=== PATIENT | male | born 1985 | race Caucasian/White ===

== ENCOUNTER 2016-08-02 09:27 | Outpatient (CLI) | payer OTHER ==
[2016-08-02] MEDS ORDERED: NACL ONE (09:59)
--- NOTE | 2016-08-02 11:56 | Cat Scan Report ---
CT CHEST WITH AND WITHOUT CONTRAST INDICATION: History of positive PPD. Abnormal chest x-ray. Cough, chest pain. COMPARISON: None similar at this institution. FINDINGS: Chest CT performed before and after IV contrast. Associate Application Developer view suggests suboptimal inspiration with exaggerated cardiomediastinal silhouette/possible cardiomegaly. Right hemidiaphragm slightly elevated. No effusions. Unremarkable great vessels. No size significant adenopathy. Patent central airway. Minimal residual thymus anteriorly with preserved mediastinal contours. Unremarkable thyroid. Clear, well-expanded lungs. Nonspecific distal esophageal wall thickening, not excluded for gastroesophageal reflux and/or hiatal hernia, amongst others. Moderate colonic stool/possible constipation. Normal appendix. Redundant ascending colon. No focal aggressive osseous lesions. CONCLUSION: No acute chest CT abnormality with few incidental findings, as above. Direct comparison with prior chest radiographs or correlation to its report would be further helpful as to assess for the nature of the abnormality suspected. Thank you for the opportunity to participate in this patient's care.
== END 2016-08-02 09:28 | disposition home or self-care (01) ==
LOC: CT 09:27
PROVIDERS: ATTEND Family Medicine
DX: R93.8 Abnormal findings on diagnostic imaging of other specified body structures (principal); Q79.1 Other congenital malformations of diaphragm; R05 Cough; R07.9 Chest pain, unspecified; Z87.898 Personal history of other specified conditions
CPT/HCPCS: 71270; Q9967